=== PATIENT | female | born 1975 | race African-American/Black ===

== ENCOUNTER 2020-02-29 10:56 | Emergency (ER) | payer OTHER ==
[~2020-02-29] VITALS: Ht 154.9 cm; Wt 43.9 kg
[2020-02-29] MEDS ORDERED: cefTRIAXone SOD 250MG VIAL (J0696 PER 250MG) IM ONE (12:45)
[2020-02-29] MEDS ORDERED: LIDOCAINE 1% SDV 5ML VIAL DILUENT ONE (12:45)
[2020-02-29] MEDS ORDERED: AZITHROMYCIN 250MG TABLET PO ONE (12:45)
[2020-02-29 13:05] VITALS: BP 177/95
[2020-02-29] MEDS ORDERED: FLAG500T PO (14:37)
[2020-02-29 15:55] LABS: CHLAMYDIA DNA AMPLIFICATION NEGATIVE (NEGATIVE); GC DNA AMPLIFICATION POSITIVE (NEGATIVE)
== END 2020-02-29 13:12 | disposition home or self-care (01) ==
LOC: M ED 10:56
DX: N76.0 Acute vaginitis (principal); Z20.2 Contact with and (suspected) exposure to infections with a predominantly sexual mode of transmission; F17.200 Nicotine dependence, unspecified, uncomplicated; Z91.040 Latex allergy status
CPT/HCPCS: 81001; 87086; 87661; 96372; 99283; J0696